=== PATIENT | male | born 1950 | race Caucasian/White ===

== ENCOUNTER 2018-07-17 09:40 | Emergency (ER) | payer BC ==
[2018-07-17 10:08] VITALS: BP 143/85
--- NOTE | 2018-07-17 10:19 | UC ---
Skin Complaint HPI - HPI Summary HPI Summary: C/O right foot swelling, redness and pain over the last 3 days. Started having chills last night associated with congestion, sore throat and cough. - History of Current Complaint Chief Complaint: UCSkin Time Seen by Provider: 07/17/18 10:13 Stated Complaint: RIGHT FOOT CONCERN Hx Obtained From: Patient Onset/Duration: Sudden Onset, Lasting Days - 3 days., Worse Since - last night. Timing: Constant Onset Severity: Mild Current Severity: Mild Pain Intensity: 3 Location: Foot (Right) Character: Swelling, Pain, Redness Aggravating Factor(s): Touch - and walking Alleviating Factor(s): Nothing Associated Signs & Symptoms: Positive: Fever, Chills, Cough, Tenderness. Negative: Nausea, Vomiting, Throat Tightening, Rash, Red Streaks - Allergy/Home Medications Allergies/Adverse Reactions: Allergies Allergy/AdvReac Type Severity Reaction Status Date / Time No Known Allergies Allergy Verified 07/17/18 10:02 Home Medications: Home Medications Ibuprofen TAB* [Advil TAB*] 400 mg PO Q6H PRN 07/17/18 [History Confirmed ] diPHENhydraMINE PO* [Benadryl PO 25 MG TAB*] 50 mg PO Q6H PRN 07/17/18 [History Confirmed 07/17/18] Review of Systems Constitutional: Fever, Chills Skin: Other - redness over the dorsal right foot. ENT: Sore Throat, Nasal Discharge Respiratory: Cough Is Patient Immunocompromised?: No All Other Systems Reviewed And Are Negative: Yes PMH/Surg Hx/FS Hx/Imm Hx Previously Healthy: Yes - Surgical History Surgical History: Yes Surgery Procedure, Year, and Place: Right Knee Arthroscopy, ~2001, [place] - Family History Known Family History: Positive: Hypertension - Social History Occupation: Employed Full-time Lives: With Family Alcohol Use: Occasionally Substance Use Type: None Smoking Status (MU): Never Smoked Tobacco Physical Exam Triage Information Reviewed: Yes Appearance: Well-Nourished, Ill-Appearing - mild, Pain Distress - mild, worse with walking Vital Signs: Initial Vital Signs Temp 100.9 F 07/17/18 10:00 Pulse 120 07/17/18 10:00 Resp 24 07/17/18 10:00 BP 143/85 07/17/18 10:00 Pulse Ox 98 07/17/18 10:00 Vital Signs Reviewed: Yes Eyes: Positive: Conjunctiva Clear ENT: Positive: Pharynx normal, Nasal congestion, TMs normal Neck exam: Normal Respiratory: Positive: Wheezing - expiratory wheezing with cough Cardiovascular Exam: Normal Musculoskeletal: Positive: ROM Limited @ - right foot and ankle with the swelling and pain., Other: - antalgic gait. Neurological Exam: Normal Psychological Exam: Normal Skin: Positive: Other - erythema with swelling and tenderness over the dorsal right foot. Course/Dx - Differential Diagnoses - Skin Complaint Differential Diagnoses: Abscess, Cellulitis, Lymphadenitis, Lymphangitis - Diagnoses Provider Diagnoses: Cellulitis right foot. Acute URI. Acute bronchospasm Discharge - Sign-Out/Discharge Documenting (check all that apply): Patient Departure All imaging exams completed and their final reports reviewed: No Studies - Discharge Plan Condition: Stable Disposition: HOME Prescriptions: Cephalexin CAP* [Keflex 500 CAP*] 500 mg PO QID #28 cap predniSONE TAB* [Deltasone 20 MG TAB*] 20 mg PO DAILY #18 tab Patient Education Materials: Cellulitis (ED), Cephalexin (By mouth), Ceftriaxone (By injection), Upper Respiratory Infection (ED), Wheezing (ED), Prednisone (By mouth) Referrals: Maddie Rizo MD [Primary Care Provider] - Additional Instructions: Keep the leg elevated and do warm packs on the foot every 2 to 3 hours. Start the cephalexin this evening. Go to the ER if the redness is spreading up the leg. - Billing Disposition and Condition Condition: STABLE Disposition: Home
[2018-07-17] MEDS ORDERED: cefTRIAXone VIAL(*) 1,000 MG VIAL IM ONE (10:32)
[2018-07-17] MEDS ORDERED: Lidocaine 1% MPF* 2 ML VIAL ONE (10:36)
== END 2018-07-17 11:10 | disposition home or self-care (01) ==
LOC: UCCORT 09:40
DX: L03.115 Cellulitis of right lower limb (principal); J06.9 Acute upper respiratory infection, unspecified; J98.01 Acute bronchospasm
CPT/HCPCS: 96372; 99212; G0463; J0696